=== PATIENT | male | born 1955 | race Caucasian/White ===

== ENCOUNTER 2021-06-26 09:57 | Day surgery (SDC) | payer OTHER ==
[2021-06-26] MEDS ORDERED: Sodium Bicarbonate 2.5 MEQ/5 ML VIAL ONE (10:13)
[2021-06-26 10:39] VITALS: BP 105/66; TEMP 97.8
[2021-06-26 13:10] LABS: Body Fluid Source Paracentesis Fluid; Tube # EDTA
[2021-06-26 13:11] LABS: BF Color Yellow; Clarity Hazy (Clear)
[2021-06-26 16:53] LABS: Fluid, Amylase 22 U/L (Not Available); Fluid, Glucose 150 mg/dL (Not Available)
== END 2021-06-26 11:30 | disposition home or self-care (01) ==
LOC: CSHULT 09:57
PROVIDERS: ATTEND Internal Medicine Gastroenterology
DX: R18.8 Other ascites (principal); K74.60 Unspecified cirrhosis of liver
CPT/HCPCS: 49083; 82150; 82945; 87070; 87205; 89051

== ENCOUNTER 2021-07-10 10:29 | Day surgery (SDC) | payer OTHER ==
[2021-07-10 11:13] VITALS: BMI 23.3
[2021-07-10] MEDS ORDERED: Sodium Bicarbonate 2.5 MEQ/5 ML VIAL ONE (11:17)
== END 2021-07-10 13:32 | disposition home or self-care (01) ==
LOC: CSHULT 10:29
PROVIDERS: ATTEND Internal Medicine Gastroenterology
DX: R18.8 Other ascites (principal)
CPT/HCPCS: 49083

== ENCOUNTER 2021-08-28 10:23 | Day surgery (SDC) | payer OTHER ==
[2021-08-28] MEDS ORDERED: Sodium Bicarbonate 2.5 MEQ/5 ML VIAL ONE (10:47)
[2021-08-28 11:31] LABS: #Basophils 0.1 10x3/uL (0.0-0.2); #Eosinphils 0.8 10x3/uL (0.0-0.5); #Monocytes 0.7 10x3/uL (0.0-1.1); #Neutrophils 4.2 10x3/uL (1.5-8.4); %Basophils 1.1 % (0.0-2.0); %Eosinophils 10.6 % (0.0-6.0); %Monocytes 9.6 % (0.0-10.0); Hemoglobin 10.4 g/dL (13.5-17.5); Mean Corpuscular HGB CONC 34.3 g/dL (32.0-36.0); Mean Corpuscular Hemoglobin 27.6 pg (27.0-33.0); Mean Corpuscular Volume 80.4 fl (81.2-95.1); Mean Platelet Volume 10.1 fl (7.4-10.4); Platelet Count 201 10x3/uL (150-450); RBC Distribution Width 15.9 % (11.5-14.5); Red Blood Cell (RBC) Count 3.77 10x6/uL (4.32-5.72); White Blood Cell (WBC) Count 7.2 10x3/uL (3.5-10.5)
[2021-08-28 11:47] LABS: Anion Gap 13 mmol/L (10-20); BUN (Urea Nitrogen) 95 mg/dL (8.4-25.7); Calc. Creatinine Clearance 0 mL/min (70-130); Calcium 9.3 mg/dL (7.8-10.44); Carbon Dioxide 23 mmol/L (23-31); Chloride 98 mmol/L (98-107); Glucose 123 mg/dL (80-115); Potassium 4.6 mmol/L (3.5-5.1); Sodium 129 mmol/L (136-145)
[2021-08-28 11:54] VITALS: BP 97/53
[2021-08-28] MEDS ORDERED: FLU VACC QS2021-22(6MOS UP)/PF 60 MCG/0.5 ML SYRINGE IM ONE (12:15)
== END 2021-08-28 12:17 | disposition home or self-care (01) ==
LOC: CSHULT 10:23
PROVIDERS: ATTEND Internal Medicine Gastroenterology
DX: R18.8 Other ascites (principal)
CPT/HCPCS: 49083; 80048; 85025

== ENCOUNTER 2021-09-04 10:11 | Day surgery (SDC) | payer OTHER ==
[2021-09-04] MEDS ORDERED: Lidocaine 1% PF 5 ML VIAL ONE (11:09)
[2021-09-04] MEDS ORDERED: Albumin 25% 100 ML ONE (11:09)
[2021-09-04] MEDS ORDERED: Sodium Bicarbonate 2.5 MEQ/5 ML VIAL ONE (11:10)
[2021-09-04 12:14] VITALS: BP 115/56
[2021-09-04 12:32] LABS: Anion Gap 42 mmol/L (10-20); BUN (Urea Nitrogen) 45 mg/dL (8.4-25.7); Calc. Creatinine Clearance 50 mL/min (70-130); Carbon Dioxide 11 mmol/L (23-31); Chloride 87 mmol/L (98-107); Glucose 64 mg/dL (80-115); Sodium 138 mmol/L (136-145)
[2021-09-04 12:45] LABS: Calcium 5.4 mg/dL (7.8-10.44); Potassium 2.4 mmol/L (3.5-5.1)
[2021-09-04] MEDS ORDERED: FLU VACC QS2021-22(6MOS UP)/PF 60 MCG/0.5 ML SYRINGE IM ONE (13:30)
== END 2021-09-04 12:15 | disposition home or self-care (01) ==
LOC: CSHULT 10:11
PROVIDERS: ATTEND Internal Medicine Gastroenterology
DX: R18.8 Other ascites (principal)
CPT/HCPCS: 49083; 80048; P9047

== ENCOUNTER 2021-09-04 13:18 | Observation (INO) | payer OTHER ==
[2021-09-04 14:00] LABS: #Basophils 0.1 10x3/uL (0.0-0.2); #Eosinphils 0.5 10x3/uL (0.0-0.5); #Monocytes 0.6 10x3/uL (0.0-1.1); #Neutrophils 3.8 10x3/uL (1.5-8.4); %Basophils 1.7 % (0.0-2.0); %Eosinophils 6.9 % (0.0-6.0); %Lymphocytes 25.5 % (18.0-47.0); %Monocytes 8.4 % (0.0-10.0); Hemoglobin 11.3 g/dL (13.5-17.5); Mean Corpuscular HGB CONC 34.7 g/dL (32.0-36.0); Mean Corpuscular Hemoglobin 27.7 pg (27.0-33.0); Mean Corpuscular Volume 79.9 fl (81.2-95.1); Mean Platelet Volume 10.5 fl (7.4-10.4); Platelet Count 175 10x3/uL (150-450); RBC Distribution Width 15.5 % (11.5-14.5); Red Blood Cell (RBC) Count 4.08 10x6/uL (4.32-5.72); White Blood Cell (WBC) Count 6.6 10x3/uL (3.5-10.5)
[2021-09-04 14:23] LABS: INR-International Normal Ratio 1.1; PTT 27.9 sec (22.0-33.0); Prothrombin Time 11.7 sec (9.5-12.1)
[2021-09-04] MEDS ORDERED: Cefepime 2 GM VIAL ONE (14:54)
[2021-09-04] MEDS ORDERED: Potassium Chloride 20 MEQ TAB ONE (14:54)
[2021-09-04] MEDS ORDERED: Magnesium 2 GM/50 ML BAG (IN WATER) ONE (14:54)
[2021-09-04] MEDS ORDERED: NS 0.9% w/ 20 MEQ KCL 1,000 ML ONE (14:55)
[2021-09-04] MEDS ORDERED: Albumin 25% 25 GM/100 ML BOT IVPB SCH (15:30)
[2021-09-04 15:54] LABS: Magnesium 2.5 mg/dL (1.6-2.6)
[2021-09-04 16:10] LABS: ALT (SGPT) 23 U/L (8-55); AST (SGOT) 73 U/L (5-34); Albumin 3.1 g/dL (3.4-4.8); Alkaline Phosphatase 99 U/L (40-110); Anion Gap 16 mmol/L (10-20); BUN (Urea Nitrogen) 80 mg/dL (8.4-25.7); Bilirubin, Total 1.3 mg/dL (0.2-1.2); Calc. Creatinine Clearance 0 mL/min (70-130); Calcium 8.9 mg/dL (7.8-10.44); Carbon Dioxide 19 mmol/L (23-31); Chloride 100 mmol/L (98-107); Globulin 3.6 g/dL (2.4-3.5); Glucose 106 mg/dL (80-115); Potassium 4.8 mmol/L (3.5-5.1); Protein, Total 6.7 g/dL (5.8-8.1); Sodium 130 mmol/L (136-145)
[2021-09-04] MEDS ORDERED: Guaifenesin DM 100-10/5 ML UDCUP PO PRN (17:24)
[2021-09-04 18:38] LABS: SARS-CoV-2 NAA Rapid Test Not Detected (NotDetected)
[2021-09-04] MEDS ORDERED: Albuterol Sulfate 2.5 mg/3 ml Neb NEB PRN (19:59)
[2021-09-04 20:21] LABS: Anion Gap 16 mmol/L (10-20); BUN (Urea Nitrogen) 78 mg/dL (8.4-25.7); Calc. Creatinine Clearance 0 mL/min (70-130); Calcium 8.9 mg/dL (7.8-10.44); Carbon Dioxide 18 mmol/L (23-31); Chloride 103 mmol/L (98-107); Glucose 99 mg/dL (80-115); Magnesium 2.4 mg/dL (1.6-2.6); Potassium 5.2 mmol/L (3.5-5.1); Sodium 132 mmol/L (136-145)
[2021-09-04] MEDS: Gabapentin 300 MG CAP PO SCH (20:30)
[2021-09-04 20:34] VITALS: BMI 18.8
[2021-09-04] MEDS ORDERED: Famotidine 20 MG TAB PO SCH (21:00)
[2021-09-04] MEDS: Albumin 25% 25 GM/100 ML BOT IVPB SCH (21:53)
[2021-09-04 22:46] LABS: Bilirubin Neg (Negative); Blood, Urine Negative (Negative); Clarity Slightly Cloudy (Clear); Glucose, Urine (Dipstick) Normal (Negative); Ketone, Urine 5 mg/dL (Negative); Leukocyte Negative (Negative); Nitrite Negative (Negative); Protein, Urine (Dipstick) Negative (Neg-Trace); Specific Gravity, Urine 1.015 (1.002-1.036); Urobilinogen Normal mg/dL (Less than 2)
[2021-09-05] MEDS: Cefepime 1 GM in Sodium Chloride 0.9% 100 ML IVPB SCH ×2 (03:02→15:05)
[2021-09-05] MEDS: Albumin 25% 25 GM/100 ML BOT IVPB SCH ×6 (04:02→19:55)
[2021-09-05 05:18] LABS: ALT (SGPT) 16 U/L (8-55); AST (SGOT) 49 U/L (5-34); Albumin 3.5 g/dL (3.4-4.8); Alkaline Phosphatase 70 U/L (40-110); Anion Gap 14 mmol/L (10-20); BUN (Urea Nitrogen) 74 mg/dL (8.4-25.7); Calc. Creatinine Clearance 32 mL/min (70-130); Calcium 9.3 mg/dL (7.8-10.44); Carbon Dioxide 19 mmol/L (23-31); Chloride 107 mmol/L (98-107); Globulin 2.3 g/dL (2.4-3.5); Glucose 97 mg/dL (80-115); Potassium 5.2 mmol/L (3.5-5.1); Protein, Total 5.8 g/dL (5.8-8.1); Sodium 135 mmol/L (136-145)
[2021-09-05 05:38] LABS: #Basophils 0.1 10x3/uL (0.0-0.2); #Eosinphils 0.5 10x3/uL (0.0-0.5); #Monocytes 0.7 10x3/uL (0.0-1.1); #Neutrophils 3.6 10x3/uL (1.5-8.4); %Basophils 1.4 % (0.0-2.0); %Eosinophils 8.3 % (0.0-6.0); %Lymphocytes 24.3 % (18.0-47.0); %Monocytes 11.1 % (0.0-10.0); %Neutrophils 54.6 % (40.0-75.0); Hemoglobin 8.7 g/dL (13.5-17.5); Mean Corpuscular HGB CONC 33.9 g/dL (32.0-36.0); Mean Corpuscular Hemoglobin 27.3 pg (27.0-33.0); Mean Corpuscular Volume 80.6 fl (81.2-95.1); Mean Platelet Volume 9.9 fl (7.4-10.4); Platelet Count 136 10x3/uL (150-450); RBC Distribution Width 15.5 % (11.5-14.5); Red Blood Cell (RBC) Count 3.19 10x6/uL (4.32-5.72); White Blood Cell (WBC) Count 6.5 10x3/uL (3.5-10.5)
[2021-09-05] MEDS: Levothyroxine Sodium 100 MCG TAB PO SCH (06:31)
[2021-09-05] MEDS: Gabapentin 300 MG CAP PO SCH ×3 (08:25→21:18)
[2021-09-05 16:53] VITALS: TEMP 97
[2021-09-05] MEDS ORDERED: Albumin 25% 25 GM/100 ML BOT IVPB SCH (23:00)
[2021-09-06] MEDS: Cefepime 1 GM in Sodium Chloride 0.9% 100 ML IVPB SCH (03:42)
[2021-09-06] MEDS: Levothyroxine Sodium 100 MCG TAB PO SCH (06:15)
[2021-09-06 08:00] VITALS: BP 88/58
[2021-09-06 09:51] LABS: ALT (SGPT) 16 U/L (8-55); AST (SGOT) 54 U/L (5-34); Albumin 3.6 g/dL (3.4-4.8); Alkaline Phosphatase 56 U/L (40-110); Anion Gap 14 mmol/L (10-20); BUN (Urea Nitrogen) 66 mg/dL (8.4-25.7); Bilirubin, Total 1.3 mg/dL (0.2-1.2); Calc. Creatinine Clearance 33 mL/min (70-130); Calcium 9.1 mg/dL (7.8-10.44); Carbon Dioxide 17 mmol/L (23-31); Chloride 107 mmol/L (98-107); Glucose 125 mg/dL (80-115); Potassium 4.6 mmol/L (3.5-5.1); Protein, Total 5.6 g/dL (5.8-8.1); Sodium 133 mmol/L (136-145)
== END 2021-09-06 13:20 | disposition home or self-care (01) ==
LOC: CSHERS 13:18 → CSHIMCU 18:58 → INTOOBSV 18:58 → CSHIMCU 20:31
PROVIDERS: ADMIT Family Medicine; ATTEND Internal Medicine
DX: E87.6 Hypokalemia (principal); E87.5 Hyperkalemia; E87.1 Hypo-osmolality and hyponatremia; K76.7 Hepatorenal syndrome; K70.31 Alcoholic cirrhosis of liver with ascites; E11.22 Type 2 diabetes mellitus with diabetic chronic kidney disease; N18.30 Chronic kidney disease, stage 3 unspecified; I95.89 Other hypotension; J44.9 Chronic obstructive pulmonary disease, unspecified; E03.9 Hypothyroidism, unspecified; F17.210 Nicotine dependence, cigarettes, uncomplicated; Z79.899 Other long term (current) drug therapy; T68.XXXA Hypothermia, initial encounter; D63.8 Anemia in other chronic diseases classified elsewhere; F10.21 Alcohol dependence, in remission; Z20.822 Contact with and (suspected) exposure to COVID-19
CPT/HCPCS: 0240U; 36415; 80053; 81003; 83605; 83735; 85025; 85610; 85730; 87040; 93005; 96365; 96366; 96367; 96368; 96376; G0378; J0692; J3475; J3480; J3490; P9047

== ENCOUNTER 2021-09-11 10:02 | Day surgery (SDC) | payer OTHER ==
[2021-09-11] MEDS ORDERED: Albumin 25% 100 ML ONE (10:21)
[2021-09-11] MEDS ORDERED: Lidocaine 1% PF 5 ML VIAL ONE (10:55)
[2021-09-11] MEDS ORDERED: Sodium Bicarbonate 2.5 MEQ/5 ML VIAL ONE (10:55)
[2021-09-11 11:47] VITALS: TEMP 98.8
[2021-09-11 11:51] VITALS: BP 113/61
== END 2021-09-11 11:21 | disposition home or self-care (01) ==
LOC: CSHULT 10:02
PROVIDERS: ATTEND Internal Medicine Gastroenterology
DX: R18.8 Other ascites (principal)
CPT/HCPCS: 49083; P9047

== ENCOUNTER 2021-09-18 09:54 | Day surgery (SDC) | payer OTHER ==
[2021-09-18] MEDS ORDERED: Albumin 25% 100 ML ONE ×2 (10:14→10:15)
[2021-09-18] MEDS ORDERED: Lidocaine 1% w/Epinephrine 1:100K 20 ML VIAL ONE (10:14)
[2021-09-18] MEDS ORDERED: Lidocaine 1% PF 5 ML VIAL ONE (10:15)
[2021-09-18] MEDS ORDERED: Sodium Bicarbonate 2.5 MEQ/5 ML VIAL ONE (10:16)
[2021-09-18 11:48] LABS: Anion Gap 15 mmol/L (10-20); BUN (Urea Nitrogen) 85 mg/dL (8.4-25.7); Calc. Creatinine Clearance 0 mL/min (70-130); Calcium 9.5 mg/dL (7.8-10.44); Carbon Dioxide 19 mmol/L (23-31); Chloride 104 mmol/L (98-107); Glucose 111 mg/dL (80-115); Potassium 6.4 mmol/L (3.5-5.1); Sodium 132 mmol/L (136-145)
[2021-09-18 11:51] VITALS: BMI 18.6
[2021-09-18 12:00] VITALS: BP 102/55; TEMP 98.1
[2021-09-18] MEDS ORDERED: FLU VACC QS2021-22(6MOS UP)/PF 60 MCG/0.5 ML SYRINGE IM ONE (12:15)
== END 2021-09-18 11:40 | disposition home or self-care (01) ==
LOC: CSHULT 09:54
PROVIDERS: ATTEND Internal Medicine Gastroenterology
DX: R18.8 Other ascites (principal)
CPT/HCPCS: 49083; 80048; P9047

== ENCOUNTER 2021-09-25 09:54 | Day surgery (SDC) | payer OTHER ==
[2021-09-25] MEDS ORDERED: Lidocaine 1% PF 5 ML VIAL ONE (10:39)
[2021-09-25] MEDS ORDERED: Sodium Bicarbonate 2.5 MEQ/5 ML VIAL ONE (10:39)
[2021-09-25] MEDS ORDERED: Albumin 25% 100 ML ONE (10:47)
[2021-09-25 14:47] VITALS: BP 113/63; TEMP 98.8
== END 2021-09-25 11:45 | disposition home or self-care (01) ==
LOC: CSHULT 09:54
PROVIDERS: ATTEND Internal Medicine Gastroenterology
DX: R18.8 Other ascites (principal); K74.60 Unspecified cirrhosis of liver; F17.210 Nicotine dependence, cigarettes, uncomplicated
CPT/HCPCS: 49083; P9047

== ENCOUNTER 2021-10-05 10:10 | Day surgery (SDC) | payer OTHER ==
[2021-10-05] MEDS ORDERED: Lidocaine 1% PF 5 ML VIAL ONE (10:20)
[2021-10-05] MEDS ORDERED: Sodium Bicarbonate 2.5 MEQ/5 ML VIAL ONE (10:21)
[2021-10-05] MEDS ORDERED: Albumin 25% 100 ML ONE (10:22)
[2021-10-05 12:06] VITALS: BP 124/61; TEMP 97.8
[2021-10-08] MEDS ORDERED: FLU VACC QS2021-22(6MOS UP)/PF 60 MCG/0.5 ML SYRINGE IM ONE (12:15)
== END 2021-10-05 11:40 | disposition home or self-care (01) ==
LOC: CSHULT 10:10
PROVIDERS: ATTEND Internal Medicine Gastroenterology
DX: R18.8 Other ascites (principal)
CPT/HCPCS: 49083; P9047

== ENCOUNTER 2021-10-09 09:49 | Day surgery (SDC) | payer OTHER ==
[2021-10-09 10:46] VITALS: BP 121/63; TEMP 98.2
[2021-10-09] MEDS ORDERED: FLU VACC QS2021-22(6MOS UP)/PF 60 MCG/0.5 ML SYRINGE IM ONE (11:00)
== END 2021-10-09 11:06 | disposition home or self-care (01) ==
LOC: CSHULT 09:49
PROVIDERS: ATTEND Internal Medicine Gastroenterology
DX: R18.8 Other ascites (principal)
CPT/HCPCS: 76705

== ENCOUNTER 2021-10-15 07:28 | Day surgery (SDC) | payer OTHER ==
[2021-10-15] MEDS ORDERED: Albumin 25% 100 ML ONE (08:00)
[2021-10-15] MEDS ORDERED: Sodium Bicarbonate 2.5 MEQ/5 ML VIAL ONE (08:00)
[2021-10-15] MEDS ORDERED: Lidocaine 1% PF 5 ML VIAL ONE (08:00)
[2021-10-15 08:20] LABS: #Basophils 0.2 10x3/uL (0.0-0.2); #Eosinphils 0.8 10x3/uL (0.0-0.5); #Neutrophils 5.6 10x3/uL (1.5-8.4); %Basophils 1.7 % (0.0-2.0); %Eosinophils 8.1 % (0.0-6.0); %Lymphocytes 17.7 % (18.0-47.0); %Monocytes 11.1 % (0.0-10.0); %Neutrophils 60.5 % (40.0-75.0); Mean Corpuscular HGB CONC 33.3 g/dL (32.0-36.0); Mean Corpuscular Hemoglobin 27.7 pg (27.0-33.0); Mean Corpuscular Volume 83.1 fl (81.2-95.1); Mean Platelet Volume 10.1 fl (7.4-10.4); Platelet Count 261 10x3/uL (150-450); RBC Distribution Width 17.2 % (11.5-14.5); Red Blood Cell (RBC) Count 3.61 10x6/uL (4.32-5.72); White Blood Cell (WBC) Count 9.2 10x3/uL (3.5-10.5)
[2021-10-15 08:32] VITALS: TEMP 97.7
[2021-10-15 08:45] LABS: INR-International Normal Ratio 1.1; PTT 30.4 sec (22.0-33.0); Prothrombin Time 11.7 sec (9.5-12.1)
[2021-10-15 10:02] VITALS: BP 89/53
== END 2021-10-15 09:51 | disposition home or self-care (01) ==
LOC: CSHULT 07:28
PROVIDERS: ATTEND Internal Medicine Gastroenterology
DX: R18.8 Other ascites (principal)
CPT/HCPCS: 49083; 85025; 85610; 85730; P9047

== ENCOUNTER 2021-10-23 08:46 | Day surgery (SDC) | payer OTHER ==
[2021-10-23 10:35] VITALS: BP 102/59; TEMP 97.1
[2021-10-23] MEDS ORDERED: Albumin 25% 100 ML ONE (10:43)
[2021-10-23] MEDS ORDERED: Lidocaine 1% PF 5 ML VIAL ONE (10:43)
[2021-10-23] MEDS ORDERED: FLU VACC QS2021-22(6MOS UP)/PF 60 MCG/0.5 ML SYRINGE IM ONE (11:30)
== END 2021-10-23 11:39 | disposition home or self-care (01) ==
LOC: CSHULT 08:46
PROVIDERS: ATTEND Internal Medicine Gastroenterology
DX: K74.60 Unspecified cirrhosis of liver (principal); R18.8 Other ascites
CPT/HCPCS: 49083; P9047

== ENCOUNTER 2021-10-29 08:24 | Day surgery (SDC) | payer OTHER ==
[2021-10-29 09:10] VITALS: BP 105/58; TEMP 97
[2021-10-29] MEDS ORDERED: Lidocaine 1% PF 5 ML VIAL ONE ×2 (09:14→09:29)
[2021-10-29] MEDS ORDERED: Sodium Bicarbonate 2.5 MEQ/5 ML VIAL ONE (09:14)
[2021-10-29] MEDS ORDERED: Albumin 25% 100 ML ONE (09:14)
[2021-10-29] MEDS ORDERED: FLU VACC QS2021-22(6MOS UP)/PF 60 MCG/0.5 ML SYRINGE IM ONE (09:15)
== END 2021-10-29 11:13 | disposition home or self-care (01) ==
LOC: CSHULT 08:24
PROVIDERS: ATTEND Internal Medicine Gastroenterology
DX: R18.8 Other ascites (principal)
CPT/HCPCS: 49083; P9047

== ENCOUNTER 2021-11-05 08:01 | Day surgery (SDC) | payer OTHER ==
[2021-11-05] MEDS ORDERED: Albumin 25% 100 ML ONE (08:27)
[2021-11-05] MEDS ORDERED: Sodium Bicarbonate 2.5 MEQ/5 ML VIAL ONE (08:28)
[2021-11-05] MEDS ORDERED: Lidocaine 1% PF 5 ML VIAL ONE (08:28)
== END 2021-11-05 09:55 | disposition home or self-care (01) ==
LOC: CSHULT 08:01
PROVIDERS: ATTEND Internal Medicine Gastroenterology
DX: R18.8 Other ascites (principal)
CPT/HCPCS: 49083; P9047

== ENCOUNTER → 2021-11-13 | Day surgery (SDC) | payer OTHER ==
[~2021-11-13] MED LIST: Albumin 25% 100 ML ONE; Lidocaine 1% PF 5 ML VIAL ONE
[2021-11-13 10:46] LABS: #Basophils 0.2 10x3/uL (0.0-0.2); #Eosinphils 1.1 10x3/uL (0.0-0.5); #Monocytes 1.1 10x3/uL (0.0-1.1); #Neutrophils 8.5 10x3/uL (1.5-8.4); %Basophils 1.6 % (0.0-2.0); %Eosinophils 8.7 % (0.0-6.0); %Lymphocytes 9.6 % (18.0-47.0); %Monocytes 8.8 % (0.0-10.0); %Neutrophils 69.6 % (40.0-75.0); Hemoglobin 9.7 g/dL (13.5-17.5); Mean Corpuscular HGB CONC 35.4 g/dL (32.0-36.0); Mean Corpuscular Volume 84.8 fl (81.2-95.1); Mean Platelet Volume 10.3 fl (7.4-10.4); Platelet Count 280 10x3/uL (150-450); RBC Distribution Width 17.5 % (11.5-14.5); Red Blood Cell (RBC) Count 3.23 10x6/uL (4.32-5.72); White Blood Cell (WBC) Count 12.3 10x3/uL (3.5-10.5)
[2021-11-13 10:57] LABS: INR-International Normal Ratio 1.1; Prothrombin Time 11.7 sec (9.5-12.1)
[2021-11-13 10:59] VITALS: BMI 18.8
[2021-11-13 15:45] VITALS: TEMP 96.7
[2021-11-13 15:49] VITALS: BP 104/60
== END ==
LOC: CSHULT 08:43
PROVIDERS: ATTEND Internal Medicine Gastroenterology
DX: R18.8 Other ascites (principal)
CPT/HCPCS: 49083; 85025; 85610; P9047

== ENCOUNTER 2021-12-07 10:43 | Outpatient (CLI) | payer OTHER ==
[2021-12-07] MEDS ORDERED: Ondansetron PF 4 MG/2 ML Vial ONE (11:22)
[2021-12-07] MEDS ORDERED: Lidocaine 1% PF 5 ML VIAL ONE (11:22)
[2021-12-07] MEDS ORDERED: Albumin 25% 100 ML ONE (11:22)
[2021-12-07] MEDS ORDERED: Sodium Bicarbonate 2.5 MEQ/5 ML VIAL ONE (11:23)
[2021-12-07 12:06] LABS: #Basophils 0.1 10x3/uL (0.0-0.2); #Monocytes 1.2 10x3/uL (0.0-1.1); #Neutrophils 10.2 10x3/uL (1.5-8.4); %Basophils 0.8 % (0.0-2.0); %Eosinophils 0.2 % (0.0-6.0); %Lymphocytes 9.2 % (18.0-47.0); %Monocytes 9.1 % (0.0-10.0); %Neutrophils 79.8 % (40.0-75.0); Hemoglobin 8.1 g/dL (13.5-17.5); Mean Corpuscular HGB CONC 34.3 g/dL (32.0-36.0); Mean Corpuscular Hemoglobin 29.6 pg (27.0-33.0); Mean Corpuscular Volume 86.1 fl (81.2-95.1); Mean Platelet Volume 11.4 fl (7.4-10.4); Platelet Count 289 10x3/uL (150-450); RBC Distribution Width 16.9 % (11.5-14.5); Red Blood Cell (RBC) Count 2.74 10x6/uL (4.32-5.72); White Blood Cell (WBC) Count 12.7 10x3/uL (3.5-10.5)
[2021-12-07 12:14] LABS: INR-International Normal Ratio 1.3; Prothrombin Time 14.7 sec (9.5-12.1)
[2021-12-07] MEDS ORDERED: FLU VACC QS2021-22(6MOS UP)/PF 60 MCG/0.5 ML SYRINGE IM ONE (12:15)
== END 2021-12-07 13:15 | disposition home or self-care (01) ==
LOC: CSHULT 10:43
PROVIDERS: ATTEND Internal Medicine Gastroenterology
DX: K74.60 Unspecified cirrhosis of liver (principal); R18.8 Other ascites
CPT/HCPCS: 49083; 85025; 85610; J2405; P9047